=== PATIENT | female | born 1990 | race Two or more races ===

== ENCOUNTER 2024-06-19 16:44 | Emergency (ER) | payer OTHER, BC, SELFPAY ==
[2024-06-19 16:55] VITALS: BP 126/81; PULSE 70; RESP 16; TEMP 37.2; O2SAT 99; BMI 20.4
--- NOTE | 2024-06-19 17:12 | ED.GENADULT ---
HPI - General Adult General Date Seen: 06/19/24 Chief complaint: Laceration/Wound Stated complaint: L ring finger lac Time Seen by Provider: 06/19/24 17:09 History of Present Illness HPI narrative: 33 yo F presenting to the ER today with a work related injury to her left hand 4th digit (ring finger). She was cutting some ham with a knife yesterday at work when she actually cut part of the skin of her left ring finger finger pain print off. Bleeding was controlled yesterday but then started bleeding this afternoon when she changed the dressing. She had dark red venous oozing that would not stop. She came here to the ER because she could not get the bleeding to stop either and pressure at home. She has no history of coagulopathy or thrombocytopenia. She is not anticoagulated. She is generally healthy. She is not up-to-date on tetanus. No other injuries.. Related Data Home Medications ?Medication ?Instructions ?Recorded ?Confirmed No Known Home Medications 06/19/24 06/19/24 Allergies Allergy/AdvReac Type Severity Reaction Status Date / Time iodine Allergy Intermediate Rash Verified 06/19/24 16:55 Exam Narrative: Exam Narrative: Constitutional: Appears well-developed and well-nourished. Active. Non-toxic appearing. Polite. Somewhat nervous so she is telling jokes. HENT: Head: Atraumatic. No signs of injury. Nose: No nasal discharge. Mouth/Throat: Mucous membranes are moist. Pharynx is normal. Tonsils symmetric. Uvula midline. Airway patent. Eyes: Conjunctivae normal and EOM are normal. Pupils are equal, round, and reactive to light. Right eye exhibits no discharge. Left eye exhibits no discharge. No icterus. Neck: Normal range of motion. Neck supple. No adenopathy. No stridor. Cardiovascular: Normal rate and regular rhythm. No murmur heard. No murmurs, rubs, or gallops. Brisk capillary refill . Dark red venous oozing from a 5 x 6 mm wound on her left hand 4th digit finger pad. The superficial layer of epidermis has been avulsed. Bleeding controlled by placement of the tourniquet got. The wound bed itself is clean and dry. No foreign body. The wound does not penetrate down into the pulp or down to the distal phalanges. The wound does not involve the fingernail plate. Pulmonary/Chest: Effort normal. No stridor. No respiratory distress. Musculoskeletal: Normal range of motion. No edema. No tenderness. No deformity. Neurological: Alert. Normal strength. No cranial nerve deficit or sensory deficit. Coordination normal. GCS eye subscore is 4. GCS verbal subscore is 5. GCS motor subscore is 6. Skin: Skin is warm. No rash noted. Const: Vital Signs, click to edit/add: Vital Signs - 24 hr 06/19/24 16:55 Temperature 99 F Pulse Rate [Pulse Oximeter] 70 Respiratory Rate 16 Blood Pressure [[facility]] 126/81 Pulse Oximetry 99 Course Vital Signs Vital signs: Initial Vital Signs Temperature 99 F 06/19/24 16:55 Temperature Source Temporal Artery Scan 06/19/24 16:55 Pulse Rate 70 06/19/24 16:55 Respiratory Rate 16 06/19/24 16:55 Blood Pressure 126/81 06/19/24 16:55 Blood Pressure Mean 96 06/19/24 16:55 Blood Pressure Position Sitting 06/19/24 16:55 Pulse Oximetry 99 06/19/24 16:55 Vital Signs Temperature 99 F 06/19/24 16:55 Pulse Rate 70 06/19/24 16:55 Respiratory Rate 16 06/19/24 16:55 Blood Pressure 126/81 06/19/24 16:55 Pulse Oximetry 99 06/19/24 16:55 Temperature 99 F 06/19/24 16:55 Pulse Rate 70 06/19/24 16:55 Respiratory Rate 16 06/19/24 16:55 Blood Pressure 126/81 06/19/24 16:55 Pulse Oximetry 99 06/19/24 16:55 Medications Administered Medications: Discontinued Medications Generic Name Dose Route Start Last Admin Trade Name Freq PRN Reason Stop Dose Admin Tetanus/Diphtheria Toxoids Adsorbed 0.5 ml 06/19/24 17:38 06/19/24 17:53 Tetanus-Diphtheria Toxoids/Pf 0.5 Ml Syringe IM 06/19/24 17:39 0.5 ml .ONCE ONE Administration Medical Decision Making MDM Narrative Medical decision making narrative: Findings and exam are consistent with an uncomplicated left hand ring finger tip skin avulsion with exposed dermis. The wound is not amenable to primary closure with sutures. We were able to achieve hemostasis by temporary application of a tourniquet got and then application of tissue adhesive. There is no evidence at this time to suggest any associated fracture or foreign body. There is no evidence to suggest tendon or arterial injury and patient is neurologically in tact. Discussed instructions for wound care and tissue adhesive care.. Indications to seek urgent reevaluation and signs of infection (including but not limited to increasing pain, redness, swelling, fevers, and drainage) were reviewed. Tetanus is not up-to-date. After discussion of risks and benefits the patient will except a tetanus diphtheria booster but not a Tdap. Td administered here in the ER. This is a clean and non-contaminated wound in which prophylactic antibiotics are not indicated. An understanding of the discharge instructions and need for follow up were verbally confirmed. Discharge Plan Discharge Clinical Impression: Avulsion of fingertip Patient Disposition: Home, Self-Care Condition: Stable Instructions: Skin Avulsion (ED) Additional Instructions: As we discussed, the wound is covered with tissue adhesive which will help it stay clean and dry. Please keep the wound covered with a dressing. Do not get the wound wet because of moisture and water will dissolve the glue. Try to keep the glue intact for the next 5-7 days. During this time a new layer of skin will begin to form underneath the wound bed. The glue will gradually peel off over the next week or so. It will probably take several weeks for new skin to form and grow on your finger tip. If you have more bleeding, try to elevate the wound above the level of your heart and hold pressure on the wound for 10 minutes. If it is still bleeding, come back to the ER right away to be rechecked. If you notice signs of infection such as redness, swelling or finger, pus draining from the wound, come back to the ER right away. Prescriptions: No Action No Known Home Medications Stand Alone Forms: [employer] Info Instructions
--- OUTSIDE RECORDS SUMMARY | 2024-06-19 17:50 | XMS_ITS | Clinical Summary ---
Author Organization [facility] Address [place], [place] [address] Care Team Providers Care Head Trimmer Name Role Phone Clinic, [facility] Pro vider Allergies Active Allergy Reactions Criticality Noted Date Comments Iodine Rash 05/24/2013 Medications polyethylene glycoL (MIRALAX) 17 gram/dose powder Take 17 g by mouth once daily if needed for Constipatio n. 1 jar 0 09/27/2013 Active Active Problems No known active problems Immunizations Name Administration Dates Next Due Tdap 12/06/2006 Family History Medical History Relation Name Comments Hypertension Father Cancer Paternal Grandmother Relation Name Status Comments Brother 1 Alive Brother 2 Alive Father Alive Maternal Grandfather Alive Maternal Grandmother Alive Mother Alive Paternal Grandfather (Age 85) Paternal Grandmother (Age 82) ca ncer Sister 1 Alive Sister 2 Alive Sister 3 Alive Social History Tobacco Use Types Packs/Day Years Used Date Smoking Tobacco: Never Smokeless Tobacco: Never Tobacco Cessation:Counseling Given: Yes Alcohol Use Standard Drinks/Week Comments No 0 (1 standard drink = 0.6 oz pur e alcohol) Comments No Sex and Gender Information Value Date Recorded Sex Assigned at Not on file Legal Sex Female 5:23 AM [employer] Gender Identity Not on file Sexual Orientation Not on file Occupation Industry Job Start Date Job End Date [employer] Not on file Not on file Not on file Obstetrics History Last Filed Vital Signs Vital Sign Reading Time Taken Comments Blood Pressure 120/62 10/02/2015 4:34 PM CDT Pulse 68 10/02/2015 4:34 PM CDT Temperature 36.6 C (97.9 F) 10/02/2015 4:34 PM CDT Respiratory Rate 16 09/14/2014 9:37 AM CDT Oxygen Saturation 100% 05/24/2013 3:16 AM [employer] Inhaled Oxygen Concentration - - Weight 59.4 kg (131 lb) 10/02/2015 4:34 PM CDT Height 170 cm (5' 6.93) 10/02/2015 4:34 PM CDT Body Mass Index 20.56 10/02/2015 4:34 PM CDT Plan of Treatment Health Maintenance Due Date Last Done Comments Depression screening for age 12+ 2003 HIV for age 15-65 11/10/2006 Hepatitis C screening for ag e 18-79 11/10/2009 Pap test for age 21-65 11/10/2012 BMI (ht and wt on same day) for age 18+ 10/01/2016 10/02/2015 Tetanus booster 12/06/2016 12/06/2006 COVID-19 vaccine series (2023- season) 2024 Influenza for age 9-49 01/16/2024 Tdap Completed 12/06/2006 Pneumococcal series for age 6-49 Aged Out No longer eligible based on patient's age to complete this topic Insurance [facility] [id number] [address] [id number] Care Teams Head Trimmer Relationship Specialty Start Date End Date [facility], [address] [place]wend[place]yn [place] [id number] PCP - General 05/24/14
[2024-06-19] MEDS: TETANUS-DIPHTHERIA TOXOIDS/PF 0.5 ML SYRINGE IM (17:53)
== END 2024-06-19 17:58 | disposition home or self-care (01) ==
PROVIDERS: Emergency Provider Emergency Medicine
DX: S61.305A Unspecified open wound of left ring finger with damage to nail, initial encounter (principal); W26.0XXA Contact with knife, initial encounter
CPT/HCPCS: 12001; 90471; 90714; 99282